=== PATIENT | male | born 1990 | race American Indian/Alaskan Native ===

== ENCOUNTER 2018-10-07 18:57 | Observation (INO) | payer OTHER ==
--- NOTE | 2018-10-07 19:11 | C.PDOC ---
Time Seen by Provider: 10/07/18 19:04 Chief Complaint (Nursing): Male Genitourinary Disposition - Disposition
--- NOTE | 2018-10-07 19:57 | C.PDOC ---
History Of Present Illness 28 year old male, with no significant past medical history, presents to the ED for evaluation of right testicular pain which began around 6 hours prior to arrival. Patient states he began feeling discomfort in his right testicular re gion at around 1300 today. He went to an urgent care center for evaluation, where he underwent an ultrasound which showed right testicular torsion and was instructed to go to the nearest emergency room. Patient then went to [facility], where he underwent bloodwork. While at [facility], patient received Morphine which controlled his pain. [facility] ED attending attempted to manually de-torse without success. There is no urologist content management specialist at [facility] today. Patient's transfer to [facility] was attempted, but patient was notified about the estimated two hour wait time and decided to leave against medical advice. He then came directly to this ED. He denies fever, chills, abdominal pain, recent trauma/injury to the site. Time Seen by Provider: 10/07/18 19:04 Chief Complaint (Nursing): Male Genitourinary History Per: Patient History/Exam Limitations: no limitations Onset/Duration Of Symptoms: Hrs (6) Current Symptoms Are (Timing): Still Present Additional History Per: Patient Past Medical History Reviewed: Historical Data, Nursing Documentation, Vital Signs Vital Signs: Last Vital Signs Temp 98.9 F 10/07/18 19:03 Pulse 79 10/07/18 19:03 Resp 20 10/07/18 19:03 BP 137/89 10/07/18 19:03 Pulse Ox 99 10/07/18 19:03 - Medical History PMH: No Chronic Diseases Surgical History: No Surg Hx Family History: States: Unknown Family Hx - Social History Hx Alcohol Use: Yes Hx Substance Use: No - Immunization History Hx Tetanus Toxoid Vaccination: No Hx Influenza Vaccination: Yes (2017) Hx Pneumococcal Vaccination: No Review Of Systems Constitutional: Negative for: Fever, Chills Respiratory: Negative for: Shortness of Breath Genitourinary: Positive for: Other (right-sided testicular pain ) Physical Exam - Physical Exam Additional Physical Exam Comments: Constitutional: No acute distress. Head: Normocephalic. Atraumatic. Eyes: PERRL. ENT: Moist mucous membranes. Neck: Supple. Cardiovascular: Regular rate. Radial pulse 2+ bilaterally. Chest: No tenderness. Respiratory: Clear to auscultation bilaterally. GI: Soft. Nontender. Nondistended. : Right testicle is firm and tender, with largely horizontal lie Back: No CVA tenderness. Musculoskeletal: No tenderness or swelling of extremities. Skin: No rash. Neurologic: Alert, no focal deficit. ED Course And Treatment - Laboratory Results Result Diagrams: 10/07/18 19:53 10/07/18 20:02 O2 Sat by Pulse Oximetry: 99 (on RA) Pulse Ox Interpretation: Normal Medical Decision Making Medical Decision Making: Progress: Case discussed with Dr. Bah (Urologist content management specialist) immediately upon patient's ED arrival. OR team was called. Dr. Bah states he will arrive to OR within the hour. Bloodwork and urinalysis ordered and reviewed. Disposition - Disposition Disposition: HOSPITALIZED Disposition Time: 20:00 Condition: GUARDED - Clinical Impression Clinical Impression: Testicular torsion - Scribe Statement The provider has reviewed the documentation as recorded by the Scribe (Stefani Owusu) Provider Attestation: All medical record entries made by the Scribe were at my direction and personally dictated by me. I have reviewed the chart and agree that the record accurately reflects my personal performance of the history, physical exam, medical decision making, and the department course for this patient. I have also personally directed, reviewed, and agree with the discharge instructions and disposition.
[2018-10-07 20:11] LABS: BASO % 0.2 % (0.0-2.0); EOS % 0.1 % (0.0-4.0); HEMOGLOBIN 13.9 g/dL (12.0-18.0); LYMPH # 0.7 K/uL (1.0-4.3); LYMPH % 6.9 % (20.0-40.0); MEAN CELL VOLUME 89.9 fL (80.0-94.0); MEAN CORPUSCULAR HEMOGLOBIN 29.4 pg (27.0-31.0); MEAN CORPUSCULAR HGB CONC 32.7 g/dL (33.0-37.0); MEAN PLATELET VOLUME 7.9 fL (7.2-11.7); MONO # 0.3 K/uL (0.0-0.8); MONO % 2.8 % (0.0-10.0); NEUT # 8.6 K/uL (1.8-7.0); PLATELET COUNT 251 K/uL (130-400); RBC 4.72 Mil/uL (4.40-5.90); RED CELL DISTRIBUTION WIDTH 12.6 % (11.5-14.5); WHITE BLOOD COUNT 9.6 K/uL (4.8-10.8)
[2018-10-07 20:16] LABS: URINE BACTERIA RARE (<OCC); URINE BILIRUBIN NEGATIVE (NEGATIVE); URINE BLOOD NEGATIVE (NEGATIVE); URINE CLARITY Clear (Clear); URINE COLOR Yellow (YELLOW); URINE GLUCOSE (UA) NORMAL (Normal); URINE LEUKOCYTE ESTERASE NEG Leu/uL (Negative); URINE PROTEIN 1+ mg/dL (NEGATIVE); URINE UROBILINOGEN NORMAL mg/dL (0.2-1.0)
[2018-10-07 20:19] LABS: ALB/GLOB RATIO 1.5 (1.0-2.1); ALBUMIN 5.2 g/dL (3.5-5.0); ALT/SGPT 19 U/L (21-72); AST/SGOT 31 U/L (17-59); BLOOD UREA NITROGEN 9 mg/dL (9-20); CALCIUM 9.4 mg/dl (8.6-10.4); GFR NON-AFRICAN AMERICAN > 60; INR 1.3; PROTHROMBIN TIME 13.7 SECONDS (9.7-12.2)
[2018-10-07 20:57] LABS: LYMPHOCYTE 5 % (20-40); MONOCYTE 1 % (0-10); NEUTROPHIL 94 % (50-75); TOTAL CELLS COUNTED 100
[2018-10-07 20:58] LABS: PLATELET ESTIMATE NORMAL (NORMAL)
[2018-10-07] MEDS ORDERED: ceFAZolin 1 gm in NS 2 GM/200 ML BAG IVPB ONE (21:02)
[2018-10-07] MEDS ORDERED: Propofol 10 mg/ml Inj (20 ML) ONE (21:16)
[2018-10-07] MEDS ORDERED: Midazolam 2 MG/2 ML VIAL ONE (21:17)
[2018-10-07] MEDS ORDERED: Lidocaine Hydrochloride 5 ML INJ ONE (21:32)
[2018-10-07] MEDS ORDERED: Bupivacaine 0.25% 20 ML INJ IJ ONE (21:32)
[2018-10-07] MEDS ORDERED: ePHEDrine 50 mg/ml Inj ONE (21:42)
[2018-10-07] MEDS ORDERED: Bacitracin 500 Units/gm Oint Foilpak UD ONE (22:04)
--- NOTE | 2018-10-07 22:19 | CP.PCM.HP ---
History of Present Illness - History of Present Illness History of Present Illness: PGY-1 Ashley Rose D.O. H&P for Dr. Nayak's service: Patient is a 28 yo male with no known PMH who presents with testicular pain. Patient reports sudden onset of pain around 1 PM. He denies any trauma or strenouous activity. He initially went to urgent care and subsequently advised to go to [facility] as US showed R testicular torsion and hydrocele. [facility] attempted and failed failed manual detorsion. [facility] attempted transfer to [place] but due to length of wait time, patient left and came to [facility] ED. Dr. Bah consulted and performed detorsion. Patient is seen post-op. He denies significant pain, N/V. PMH: denies PSH: oral surgery Meds: none All: NKDA FH: denies SH: works as naval marine engineer, occasional alcohol use, denies tobacco or illicit drugs PMD: none Present on Admission - Present on Admission Any Indicators Present on Admission: No History of DVT/PE: No History of Uncontrolled Diabetes: No Urinary Catheter: No Decubitus Ulcer Present: No History Surgical Site Infection Following: None Review of Systems - Review of Systems Systems not reviewed;Unavailable: Other (post-op) Past Patient History - Infectious Disease Hx of Infectious Diseases: None - Tetanus Immunizations Tetanus Immunization: Unknown - Past Medical History & Family History Past Medical History?: No Past Family History: Reviewed and not pertinent - Past Social History Smoking Status: Never Smoked Chewing Tobacco Use: No Cigar Use: No Occupation: naval marine engineer Alcohol: Occasional Drugs: Denies - PSYCHIATRIC Hx Substance Use: No - SURGICAL HISTORY Hx Surgeries: No - ANESTHESIA Hx Anesthesia: No Meds Allergies/Adverse Reactions: Allergies Allergy/AdvReac Type Severity Reaction Status Date / Time No Known Allergies Allergy Verified 10/07/18 19:06 Physical Exam - Constitutional Appears: Non-toxic, No Acute Distress - Head Exam Head Exam: ATRAUMATIC, NORMAL INSPECTION - Eye Exam Eye Exam: EOMI, Normal appearance, PERRL - ENT Exam ENT Exam: Mucous Membranes Moist - Neck Exam Neck exam: Positive for: Normal Inspection - Respiratory Exam Respiratory Exam: Clear to Auscultation Bilateral, NORMAL BREATHING PATTERN - Cardiovascular Exam Cardiovascular Exam: RRR, +S1, +S2 - GI/Abdominal Exam GI & Abdominal Exam: Soft. absent: Distended, Tenderness - Exam Additional comments: clean dry bandages, jock-strap in place - Extremities Exam Extremities exam: Positive for: normal inspection, pedal pulses present. Negative for: pedal edema - Neurological Exam Neurological exam: Alert, CN II-XII Intact, Oriented x3 - Psychiatric Exam Psychiatric exam: Normal Affect, Normal Mood - Skin Skin Exam: Dry, Intact, Normal Color, Warm Results - Vital Signs Recent Vital Signs: Last Vital Signs Temp 98.8 F 10/07/18 20:21 Pulse 80 10/07/18 20:21 Resp 20 10/07/18 20:21 BP 132/84 10/07/18 20:21 Pulse Ox 99 10/07/18 20:40 - Labs Result Diagrams: 10/07/18 19:53 10/07/18 20:02 Labs: Laboratory Results - last 24 hr 10/07/18 10/07/18 10/07/18 19:53 19:53 20:02 WBC 9.6 RBC 4.72 Hgb 13.9 Hct 42.4 MCV 89.9 MCH 29.4 MCHC 32.7 L RDW 12.6 Plt Count 251 MPV 7.9 Neut % (Auto) 90.0 H Lymph % (Auto) 6.9 L [place] % (Auto) 2.8 Eos % (Auto) 0.1 Baso % (Auto) 0.2 Neut # (Auto) 8.6 H Lymph # (Auto) 0.7 L [place] # (Auto) 0.3 Eos # (Auto) 0.0 Baso # (Auto) 0.0 Neutrophils % (Manual) 94 H Lymphocytes % (Manual) 5 L Monocytes % (Manual) 1 Platelet Estimate Normal PT 13.7 H INR 1.3 APTT 27 Sodium Potassium Chloride Carbon Dioxide Anion Gap BUN Creatinine Est GFR ( Amer) Est GFR (Non-Af Amer) Random Glucose Calcium Total Bilirubin AST ALT Alkaline Phosphatase Total Protein Albumin Globulin Albumin/Globulin Ratio Urine Color Urine Clarity Urine pH Ur Specific [place] Urine Protein Urine Glucose (UA) Urine Ketones Urine Blood Urine Nitrate Urine Bilirubin Urine Urobilinogen Ur Leukocyte Esterase Urine WBC (Auto) Urine RBC (Auto) Urine Bacteria Blood Type B POSITIVE Antibody Screen Negative 10/07/18 10/07/18 20:02 20:06 WBC RBC Hgb Hct MCV MCH MCHC RDW Plt Count MPV Neut % (Auto) Lymph % (Auto) [place] % (Auto) Eos % (Auto) Baso % (Auto) Neut # (Auto) Lymph # (Auto) [place] # (Auto) Eos # (Auto) Baso # (Auto) Neutrophils % (Manual) Lymphocytes % (Manual) Monocytes % (Manual) Platelet Estimate PT INR APTT Sodium 139 Potassium 3.9 Chloride 102 Carbon Dioxide 27 Anion Gap 13 BUN 9 Creatinine 0.9 Est GFR ( Amer) > 60 Est GFR (Non-Af Amer) > 60 Random Glucose 100 Calcium 9.4 Total Bilirubin 0.7 AST 31 ALT 19 L Alkaline Phosphatase 64 Total Protein 8.6 H Albumin 5.2 H Globulin 3.4 Albumin/Globulin Ratio 1.5 Urine Color Yellow Urine Clarity Clear Urine pH 6.0 Ur Specific [place] 1.026 Urine Protein 1+ H Urine Glucose (UA) Normal Urine Ketones 1+ H Urine Blood Negative Urine Nitrate Negative Urine Bilirubin Negative Urine Urobilinogen Normal Ur Leukocyte Esterase Neg Urine WBC (Auto) 2 Urine RBC (Auto) < 1 Urine Bacteria Rare Blood Type Antibody Screen Assessment & Plan - Assessment and Plan (Free Text) Assessment: Patient is a 28 yo male who presented with R testicular torsion. s/p detorsion with Dr. Niurka muro. Plan: Right testicular torsion - s/p Scrotal exploration and Orchiopexy 10/07 evening- POD#0 - f/u Hydrocele fluid Cx - Morphine 0.5 mg IV Q4H PRN - Colace 100 mg PO BID - Keflex 500 mg PO QID x 7 days - Indocin PO as outpatient for pain - Urology consulted (Niurka)- f/u outpatient next week Thursday Ppx: VTE: SCDs GI: not indicated Code status: full code Case was discussed with attending, Dr. Nayak.
--- NOTE | 2018-10-07 22:22 | PCM.SURG1 ---
Surgeon's Initial Post Op Note - Surgeon's Notes Surgeon: Niurka Steel Roller: MARISSA Type of Anesthesia: General LMA Anesthesia Administered By: staff Pre-Operative Diagnosis: Right testicular torsion Operative Findings: same Post-Operative Diagnosis: same Operation Performed: Scrotal exploration,Orchiopexy Specimen/Specimens Removed: Hydrocele fluid culture Estimated Blood Loss: EBL {In ML}: 5 Blood Products Given: N/A Drains Used: No Drains Post-Op Condition: Good Date of Surgery/Procedure: 10/07/18 Time of Surgery/Procedure: 22:21
--- NOTE | 2018-10-08 06:06 | CON ---
DATE: 10/07/2018 TIME: 7:30 p.m. CHIEF COMPLAINT: Right testicular pain. HISTORY OF PRESENT ILLNESS: The patient began having sudden right testicular pain this afternoon at 12:00 noon. He was seen at a urgent center and sent for a scrotal ultrasound. The scrotal ultrasound was done at 3:38 p.m. at [facility] and showed findings consistent with torsion. The patient was then sent to the [facility]. At the [facility], he was seen and arrangements were made for transfer to [facility] because they did not have a urologist available at the [facility]. The arrangements were made to send him to [facility] but they were unable to arrange transportation at a timely fashion and advised the patient to sign out against medical advise and come to the nearest hospital which is [facility]. The patient presented at the [facility] at approximately 7 p.m. He was evaluated and findings were consistent with torsion. We advised the patient that he needs an immediate scrotal exploration. We reviewed the [facility] reports but no films were available for our review. We advised the patient that we could not review the films, but based on the report, there is a testicular torsion. After full explanation of the risks, complications, and alternative ways of managing his testicular torsion, the patient elected to proceed with the OR. REVIEW OF SYSTEMS: The patient has no medical history. There is no respiratory complaints. No GI complaints. No cardiac complaints. No orthopedic complaints. No skin complaints. No other complaints other than right testicular pain. PHYSICAL EXAMINATION: GENERAL: The patient is afebrile. VITAL SIGNS: Within normal limits. HEENT: Within normal limits. NECK: Supple. There is no bruits, nodes or mass. CHEST: Clear bilaterally. There is no rales or rhonchi. HEART: Normal sinus rhythm. ABDOMEN: Soft, nontender. There is no mass or organomegaly. GENITOURINARY: Bladder is not distended. Penis is normal, uncircumcised. Left testicle is normal. Right testicle is high-riding and tender. It is consistent with torsion. RECTAL: Not done at the patient's request. EXTREMITIES: Appear normal. IMPRESSION: Right testicular torsion. PLAN: Reviewed the fact with the patient that we cannot review the films. We discussed the possibility of repeating these studies here but we both agreed that the time delay would preclude any effect of treatment of the testicular torsion. Therefore the nursing shellfish farming supervisor was notified and the emergency staff was called in and we will proceed with the procedure as soon as the staff arrives and the Or is ready. The decision was made at this time to proceed with surgery. Trace Bah MD
[2018-10-08 08:04] LABS: BASO % 0.2 % (0.0-2.0); HEMOGLOBIN 12.6 g/dL (12.0-18.0); LYMPH # 0.7 K/uL (1.0-4.3); LYMPH % 7.9 % (20.0-40.0); MEAN CELL VOLUME 89.9 fL (80.0-94.0); MEAN CORPUSCULAR HEMOGLOBIN 29.7 pg (27.0-31.0); MEAN PLATELET VOLUME 7.8 fL (7.2-11.7); MONO # 0.8 K/uL (0.0-0.8); NEUT # 7.6 K/uL (1.8-7.0); NEUT % 82.9 % (50.0-75.0); PLATELET COUNT 250 K/uL (130-400); RBC 4.24 Mil/uL (4.40-5.90); RED CELL DISTRIBUTION WIDTH 12.4 % (11.5-14.5); WHITE BLOOD COUNT 9.2 K/uL (4.8-10.8)
[2018-10-08 08:16] LABS: ALB/GLOB RATIO 1.6 (1.0-2.1); ALBUMIN 4.3 g/dL (3.5-5.0); ALT/SGPT 18 U/L (21-72); AST/SGOT 26 U/L (17-59); BLOOD UREA NITROGEN 8 mg/dL (9-20); CALCIUM 8.8 mg/dl (8.6-10.4); GFR NON-AFRICAN AMERICAN > 60
[2018-10-08 08:54] VITALS: RESP 20
[2018-10-08 10:14] LABS: EOSINOPHIL 1 % (0-4); LYMPHOCYTE 5 % (20-40); MONOCYTE 10 % (0-10); NEUTROPHIL 84 % (50-75); PLATELET ESTIMATE NORMAL (NORMAL); TOTAL CELLS COUNTED 100
--- NOTE | 2018-10-08 13:04 | OP ---
PROCEDURE DATE: 10/07/2018 PREOPERATIVE DIAGNOSIS: Right testicular torsion. POSTOPERATIVE DIAGNOSIS: Right testicular torsion. PROCEDURES: Scrotal exploration, detorsion of torted testicle and right orchiopexy. SURGEON: Trace Bah MD FINDINGS: A 360-degree torsion of the right testicle with evidence of testicular strangulation. DESCRIPTION OF PROCEDURE: As follows: Prior to the procedure, a detailed informed consent was obtained. The patient is aware that it may not be possible to salvage the testicle after such a delay in treatment, and even if the testicle is detorted, it may have damaged which cause his testicular atrophy in the future. The patient is aware of the risks and limitations of the procedure. He said, he agreed further diagnostic testing at [facility] in order to expedite treatment. He is aware of the impacts on fertility of testicular torsion and of orchiectomy. DESCRIPTION OF PROCEDURE: The patient was brought into the room, draped and prepped in the usual manner. A time out was taken according to the rules and regulations of [facility]. After adequate anesthesia was achieved and the patient was draped and prepped and received prophylactic antibiotics, he was entered through a median raphe incision. The right hemiscrotum was entered, and the testicle was noted to be severely torted. There was a reactive hydrocele. Hydrocele sac was opened. The testicle was exteriorized and the testicle was deep torted until the complete torsion was resolved. Upon detording, the testicle was warmed, and there was pinking up of the testicle leading to appearance of viability. A small incision was made in the testicle of the tunica and the testicular contents appeared to be viable. Active bleeding was occurring, and there did not appear to be a large amount of necrosis. This small incision was closed with 3-0 chromic suture. After 5 minutes of warming the testicle, the testicle was placed back in the scrotum in normal orientation and was packed at the median raphe and the lateral side of the scrotum with 3-0 Prolene suture in three distinct places. The scrotal incision was then closed in a two-layer fashion, first with 3-0 chromic suture and the skin was closed with 3-0 Dexon suture. The patient tolerated the procedure well. The skin was infiltrated with Marcaine, Xylocaine solution for postoperative anesthesia. The patient was advised with the findings. He was given instructions regarding the activity. Prescription for Keflex and Indocin and told to follow up in our office in one week. The family was also advised of the findings. Trace Bah MD
[2018-10-08] MEDS ORDERED: Pneumococcal 23-Valent Vaccine IM ONE (13:45)
[2018-10-08] MEDS ORDERED: Influenza Vaccine 60 mcg/0.5 mL SYR (4YR UP) IM ONE (14:00)
[2018-10-08 16:00] VITALS: BP 134/81; PULSE 67; TEMP 99.3; O2SAT 98
--- NOTE | 2018-10-08 16:08 | CP.PCM.DIS ---
Provider - Provider Date of Admission: 10/07/18 22:10 Attending physician: Chandra Nayak Jr, MD Time Spent in preparation of Discharge (in minutes): 70 Hospital Course - Lab Results Lab Results: Micro Results 10/07/18 22:20 Other: Please Indicate Gram Stain - Final 10/07/18 22:20 Other: Please Indicate Body Fluid Culture - Preliminary NO GROWTH AFTER 24 HOURS Most Recent Lab Values WBC 9.2 K/uL (4.8-10.8) 10/08/18 07:30 RBC 4.24 Mil/uL (4.40-5.90) L 10/08/18 07:30 Hgb 12.6 g/dL (12.0-18.0) 10/08/18 07:30 Hct 38.1 % (35.0-51.0) 10/08/18 07:30 MCV 89.9 fL (80.0-94.0) 10/08/18 07:30 MCH 29.7 pg (27.0-31.0) 10/08/18 07:30 MCHC 33.0 g/dL (33.0-37.0) 10/08/18 07:30 RDW 12.4 % (11.5-14.5) 10/08/18 07:30 Plt Count 250 K/uL (130-400) 10/08/18 07:30 MPV 7.8 fL (7.2-11.7) 10/08/18 07:30 Neut % (Auto) 82.9 % (50.0-75.0) H 10/08/18 07:30 Lymph % (Auto) 7.9 % (20.0-40.0) L 10/08/18 07:30 Brooks % (Auto) 9.0 % (0.0-10.0) 10/08/18 07:30 Eos % (Auto) 0.0 % (0.0-4.0) 10/08/18 07:30 Baso % (Auto) 0.2 % (0.0-2.0) 10/08/18 07:30 Neut # (Auto) 7.6 K/uL (1.8-7.0) H 10/08/18 07:30 Lymph # (Auto) 0.7 K/uL (1.0-4.3) L 10/08/18 07:30 Brooks # (Auto) 0.8 K/uL (0.0-0.8) 10/08/18 07:30 Eos # (Auto) 0.0 K/uL (0.0-0.7) 10/08/18 07:30 Baso # (Auto) 0.0 K/uL (0.0-0.2) 10/08/18 07:30 Neutrophils % (Manual) 84 % (50-75) H 10/08/18 07:30 Lymphocytes % (Manual) 5 % (20-40) L 10/08/18 07:30 Monocytes % (Manual) 10 % (0-10) 10/08/18 07:30 Eosinophils % (Manual) 1 % (0-4) 10/08/18 07:30 Platelet Estimate Normal (NORMAL) 10/08/18 07:30 RBC Morphology Normal 10/08/18 07:30 PT 13.7 SECONDS (9.7-12.2) H 10/07/18 20:02 INR 1.3 10/07/18 20:02 APTT 27 SECONDS (21-34) 10/07/18 20:02 Sodium 139 mmol/L (132-148) 10/08/18 07:30 Potassium 3.8 mmol/L (3.6-5.2) 10/08/18 07:30 Chloride 104 mmol/L (98-107) 10/08/18 07:30 Carbon Dioxide 24 mmol/L (22-30) 10/08/18 07:30 Anion Gap 14 (10-20) 10/08/18 07:30 BUN 8 mg/dL (9-20) L 10/08/18 07:30 Creatinine 0.9 mg/dL (0.8-1.5) 10/08/18 07:30 Est GFR ( Amer) > 60 10/08/18 07:30 Est GFR (Non-Af Amer) > 60 10/08/18 07:30 Random Glucose 105 mg/dL (75-110) 10/08/18 07:30 Calcium 8.8 mg/dl (8.6-10.4) 10/08/18 07:30 Phosphorus 3.6 mg/dL (2.5-4.5) 10/08/18 07:30 Magnesium 1.7 mg/dL (1.6-2.3) 10/08/18 07:30 Total Bilirubin 0.6 mg/dL (0.2-1.3) 10/08/18 07:30 AST 26 U/L (17-59) 10/08/18 07:30 ALT 18 U/L (21-72) L 10/08/18 07:30 Alkaline Phosphatase 52 U/L (38-126) 10/08/18 07:30 Total Protein 7.0 g/dL (6.3-8.3) 10/08/18 07:30 Albumin 4.3 g/dL (3.5-5.0) 10/08/18 07:30 Globulin 2.7 gm/dL (2.2-3.9) 10/08/18 07:30 Albumin/Globulin Ratio 1.6 (1.0-2.1) 10/08/18 07:30 Urine Color Yellow (YELLOW) 10/07/18 20:06 Urine Clarity Clear (Clear) 10/07/18 20:06 Urine pH 6.0 (5.0-8.0) 10/07/18 20:06 Ur Specific [place] 1.026 (1.003-1.030) 10/07/18 20:06 Urine Protein 1+ mg/dL (NEGATIVE) H 10/07/18 20:06 Urine Glucose (UA) Normal mg/dL (Normal) 10/07/18 20:06 Urine Ketones 1+ mg/dL (NEGATIVE) H 10/07/18 20:06 Urine Blood Negative (NEGATIVE) 10/07/18 20:06 Urine Nitrate Negative (NEGATIVE) 10/07/18 20:06 Urine Bilirubin Negative (NEGATIVE) 10/07/18 20:06 Urine Urobilinogen Normal mg/dL (0.2-1.0) 10/07/18 20:06 Ur Leukocyte Esterase Neg Jennifer/uL (Negative) 10/07/18 20:06 Urine WBC (Auto) 2 /hpf (0-5) 10/07/18 20:06 Urine RBC (Auto) < 1 /hpf (0-3) 10/07/18 20:06 Urine Bacteria Rare (<OCC) 10/07/18 20:06 Blood Type B POSITIVE 10/07/18 19:53 Antibody Screen Negative 10/07/18 19:53 - Hospital Course Hospital Course: Upon Admission: Patient is a 28 yo male with no known PMH who presents with testicular pain. Patient reports sudden onset of pain around 1 PM. He denies any trauma or strenouous activity. He initially went to urgent care and subsequently advised to go to [facility] as US showed R testicular torsion and hydrocele. [facility] attempted and failed failed manual detorsion. [facility] attempted transfer to [place] but due to length of wait time, patient left and came to [facility] ED. Dr. Bah consulted and performed detorsion. Patient is seen post-op. He denies significant pain, N/V. Hospital Course: Patient was admitted s/p Scrotal exploration and Orchiopexy 10/07 evening. He was given a pelvic sling to wear. Patient received morphine for pain. He was deemed stable for discharge the following day. Upon Discharge: Patient was deemed stable for discharge to home with instructions to take a 7 day course of keflex and indocin and follow up with Dr. Bah on Thursday10/12/18. He was told to keep area clear and dry. Patient understood instructions and agreed. Discharge Exam - Head Exam Head Exam: ATRAUMATIC, NORMAL INSPECTION, NORMOCEPHALIC - Eye Exam Eye Exam: EOMI, Normal appearance, PERRL Pupil Exam: NORMAL ACCOMODATION - Respiratory Exam Respiratory Exam: Clear to PA & Lateral, NORMAL BREATHING PATTERN. absent: Rales, Rhonchi, Wheezes - Cardiovascular Exam Cardiovascular Exam: REGULAR RHYTHM, +S1. absent: Gallop, Rubs, Systolic Murmur - GI/Abdominal Exam GI & Abdominal Exam: Normal Bowel Sounds, Soft, Tenderness. absent: Distended - Exam Exam: Testicular Tenderness Additional comments: surgical site on scrotom clean, dry, intact - Extremities Exam Extremities exam: normal inspection - Neurological Exam Neurological exam: Alert, Oriented x3 - Skin Skin Exam: Normal Color Discharge Plan - Follow Up Plan Condition: GUARDED Disposition: HOME/ ROUTINE Instructions: Testicular Torsion, Adult Additional Instructions: Please follow up with your primary care physician within 2 weeks. If you do not have one, please visit the [facility] here at [facility]. Call [phone] to make an appointment. Please follow up at Dr. Bah, Urology office on ThursdayOct 12. Please call to make an appointment. Please leave the groin sling in place until your Urology appointment on Thursday. Keep your wound clean and dry, replacing gauze as needed. Take your medications as prescribed. If symptoms return, please return to the emergency department. Referrals: Chandra Nayak Jr., MD [Medical Doctor] -
[2018-10-10] MEDS ORDERED: Pneumococcal 23-Valent Vaccine SC ONE (10:00)
[2018-10-10] MEDS ORDERED: Pneumococcal 23-Valent Vaccine IM ONE (10:00)
[2018-10-10] MEDS ORDERED: Influenza Vaccine 60 mcg/0.5 mL SYR (4YR UP) IM ONE (10:00)
== END 2018-10-08 20:30 | disposition home or self-care (01) ==
LOC: C.ER 18:57 → C.SDS 19:50 → INTOOBSV 22:10 → C.9P 22:10 → C.3T 22:18
PROVIDERS: ADMIT Internal Medicine; ATTEND Internal Medicine
DX: N44.00 Torsion of testis, unspecified (principal); N43.3 Hydrocele, unspecified
CPT/HCPCS: 36415; 54600; 80053; 81001; 83735; 84100; 85025; 85610; 85730; 86850; 86900; 87070; 96374; 96376; 99285; G0378; J0690; J2250; J2270; J2704; J3010